=== PATIENT | female | born 1995 | race Caucasian/White ===

== ENCOUNTER 2016-10-10 20:37 | Emergency (ER) | payer OTHER ==
[~2016-10-10] VITALS: Ht 154.9 cm; Wt 45.8 kg
[2016-10-10 21:09] VITALS: BP 115/66
[2016-10-10] MEDS ORDERED: MECLIZINE 25 MG TAB PO ONE (21:20)
[2016-10-10] MEDS ORDERED: ONDANSETRON 4 MG ODT PO ONE (21:20)
--- NOTE | 2016-10-10 21:22 | NUR ---
PT.AMBULATE TO BED 8
--- NOTE | 2016-10-10 21:22 | NUR ---
20Y/F PATIENT PRESENTS TO ED WITH C/O N/V X 2 WKS. PT STATES HAVING ON ATB FOR UTI, BEEN FEELING N/V X 2 WK, C/O ABDOMINAL PAIN. DENIES DIARRHEA; SKIN IS PINK/WARM/DRY; AAOX4 WITH EVEN AND STEADY GAIT; LUNGS CLEAR BL; HR EVEN AND REGULAR; PT DENIES ANY FEVER, CP, SOB, OR COUGH AT THIS TIME; PATIENT STATES PAIN OF 7/10 AT THIS TIME; VSS; PATIENT POSITIONED FOR COMFORT; HOB ELEVATED; BEDRAILS UP X2; BED DOWN. ER MD MADE AWARE OF PT STATUS.
[2016-10-10] MEDS ORDERED: NACL 0.9% 1,000 ML IV ONE (22:00)
[2016-10-10 23:00] VITALS: BP 111/67
--- NOTE | 2016-10-10 23:00 | NUR ---
Patient discharged with v/s stable. Written and verbal after care instructions given and explained. Patient verbalized understanding. Ambulatory with steady gait. All questions addressed prior to discharge. Advised to follow up with PMD.
== END 2016-10-10 23:00 | disposition home or self-care (01) ==
LOC: MED 20:37
DX: R55 Syncope and collapse (principal); R11.0 Nausea
CPT/HCPCS: 36415; 71020; 80048; 81001; 81025; 84702; 85025; 87086; 93005; 96360; 99285; J8597; S0119

== ENCOUNTER 2016-11-20 04:26 | Emergency (ER) | payer SELFPAY ==
[~2016-11-20] VITALS: Ht 154.9 cm; Wt 44.0 kg
--- NOTE | 2016-11-20 04:32 | NUR ---
Dr. Naranjo evaluating patient
[2016-11-20 04:38] VITALS: BP 118/81
--- NOTE | 2016-11-20 04:43 | NUR ---
PT TAKEN TO CT
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
--- NOTE | 2016-11-20 04:46 | NUR ---
SPOKE TO GEOVANNA RODRIGUEZ; WILL SEND DISPATCH OUT
--- NOTE | 2016-11-20 04:52 | NUR ---
PT RETURN FROM CT TO BED 4
--- NOTE | 2016-11-20 05:09 | NUR ---
X-Ray at bedside.
[2016-11-20 06:34] VITALS: BP 112/76
--- NOTE | 2016-11-20 06:34 | NUR ---
Patient discharged BY DR RODRIGUES with v/s stable. Written and verbal after care instructions given and explained BY ER MD. Patient alert, oriented and verbalized understanding of instructions. Ambulatory with steady gait. All questions addressed prior to discharge. ID band removed. Patient advised to follow up with PMD TOMORROW OR RETURN TO ER IF CONDITION WORSENS. Rx of NAPROSYN given. Patient educated on indication of medication including possible reaction and side effects. Opportunity to ask questions provided and answered.
== END 2016-11-20 06:34 | disposition home or self-care (01) ==
LOC: MED 04:26
DX: S09.90XA Unspecified injury of head, initial encounter (principal); M25.531 Pain in right wrist; M79.631 Pain in right forearm; Y08.09XA Assault by strike by other specified type of sport equipment, initial encounter; Y93.89 Activity, other specified; Y92.89 Other specified places as the place of occurrence of the external cause; Y99.8 Other external cause status
CPT/HCPCS: 70450; 73090; 73130; 99284; Q0092

== ENCOUNTER 2017-09-01 22:28 | Emergency (ER) | payer MEDICAID, OTHER ==
[~2017-09-01] VITALS: Ht 154.9 cm; Wt 49.0 kg
[2017-09-01 22:32] VITALS: BP 110/72
--- NOTE | 2017-09-01 22:37 | NUR ---
PT AMB TO ER BED 4
--- NOTE | 2017-09-01 22:40 | NUR ---
PATIENT IS A 21 Y/O FEMALE WHO PRESENTS TO THE ED C/O ABD PAIN. PT STATES, "I HAVE HAD THIS ABD CRAMPING FOR ABOUT 1 WEEK NOW." PT REPORTS 8/10 CRAMPING ABD PAIN THAT DOES NOT RADIATE. PT REPORTS YELLOWISH WHITE VAGINAL DISHARGE. PT DENIES, CP, SOB REPORTS NAUSEA DENIES VOMITING/DIARRHEA. PT AAOX4, RR EVEN/UNLABORED. PT REPOSITIONED FOR COMFORT, BED IN LOWEST POSITION. ER MD DR. BANUELOS NOTIFIED. WILL CONTINUE TO MONITOR. HX---UTI RX---ADVIL
[2017-09-01 23:14] LABS: HEMOGLOBIN 13.4 g/dL (12.0-16.0); MEAN CORPUSCULAR HEMOGLOBIN 28 pg (27-31); MEAN CORPUSCULAR HGB CONC 31 g/dL (33-37); MEAN CORPUSCULAR VOLUME 91 fL (80-94); PLATELET COUNT (AUTO) 219 K/uL (140-450); RED BLOOD CELL COUNT(AUTO) 4.72 MIL/uL (4.20-5.40); RED CELL DISTRIBUTION WIDTH 12.3 % (11.6-13.7); WHITE BLOOD COUNT (AUTO) 8.8 K/uL (4.8-10.8)
[2017-09-01 23:23] LABS: APPEARANCE,URINE CLEAR (CLEAR); BILIRUBIN,URINE NEGATIVE (NEGATIVE); BLOOD, URINE NEGATIVE (NEGATIVE); COLOR,URINE YELLOW (YELLOW); LEUKOCYTE ESTERASE ,URINE NEGATIVE (NEGATIVE); NITRITE, URINE NEGATIVE (NEGATIVE); PH,URINE 5.5 (5.0-9.0); UGLUCOSE NEGATIVE (NEGATIVE)
[2017-09-01 23:24] LABS: ANION GAP 9.8 (8-16); CARBON DIOXIDE 27.3 mmol/L (21-32); CREATININE 0.7 mg/dL (0.6-1.3); POTASSIUM 4.1 mmol/L (3.5-5.1)
[2017-09-01 23:29] LABS: ALBUMIN 3.8 g/dL (3.4-5.0); TOTAL BILIRUBIN 0.3 mg/dL (0.0-1.0)
--- NOTE | 2017-09-02 00:01 | NUR ---
PT MOVED TO ER BED 10 FOR ER MD CARRANZA
--- NOTE | 2017-09-02 00:47 | NUR ---
Pelvic exam performed by SECHRIST with AIDA SERRANO at bedside for entire examination. Patient tolerated procedure WELL. Patient assisted to position of comfort after examination.
--- NOTE | 2017-09-02 00:53 | NUR ---
2 SWAB FROM PELVIC EXAM SENT TO LAB
--- NOTE | 2017-09-02 01:40 | NUR ---
US AT BEDSIDE.
--- NOTE | 2017-09-02 02:18 | NUR ---
Patient appears to be resting comfortably in bed. Vital Signs within normal limits. Respirations even and unlabored.
--- NOTE | 2017-09-02 04:08 | NUR ---
PATIENT TAKEN TO US WITH US TECH.
--- NOTE | 2017-09-02 04:31 | NUR ---
PATIENT RETURN FROM US.
[2017-09-02] MEDS ORDERED: FLUCONAZOLE 100 MG TAB PO ONE (05:15)
[2017-09-02] MEDS ORDERED: FLUCONAZOLE 100 MG TAB ONE (05:43)
[2017-09-02 06:02] VITALS: BP 116/65
--- NOTE | 2017-09-02 06:02 | NUR ---
Patient discharged with v/s stable. Written and verbal after care instructions given and explained. Patient alert, oriented and verbalized understanding of instructions. Ambulatory with steady gait. All questions addressed prior to discharge. ID band removed. Patient advised to follow up with PMD. Rx of DIFLUCAN 150MG given. Patient educated on indication of medication including possible reaction and side effects. Opportunity to ask questions provided and answered.
[2017-09-06 06:16] LABS: CHLAMYDIA TRACHOMATIS AMP DNA Negative (Negative)
== END 2017-09-02 06:02 | disposition home or self-care (01) ==
LOC: MED 22:28
DX: B37.3 Candidiasis of vulva and vagina (principal)
CPT/HCPCS: 36415; 76830; 76856; 80053; 81003; 81025; 83690; 85025; 87210; 87491; 99285; Q0092

== ENCOUNTER 2018-02-19 18:48 | Emergency (ER) | payer OTHER ==
[~2018-02-19] VITALS: Ht 154.9 cm; Wt 46.3 kg
[2018-02-19 18:52] VITALS: BP 109/66
--- NOTE | 2018-02-19 18:56 | NUR ---
pt ambulates to bed 2 at this time w/ steady gait
--- NOTE | 2018-02-19 18:59 | NUR ---
22 yo f bib self w/ c/o bl lower abdomen cramping with white/clear vaginal discharge with fevers, dysuria, and vaginal itchness x yesterday. Patient denies any n/v/d. pt aaox4. gcs 15. cms intact. rr even and unlabored. lungs bilaterally clear. abd soft, non-tender. bowel sounds active x 4 quadrants. er md notified. pt needs met, safety precautions in place, will continue to monitor.
--- NOTE | 2018-02-19 19:11 | NUR ---
Transfer of care at this time, report given to AIDA Juarez.
--- NOTE | 2018-02-19 19:25 | NUR ---
PT MOVED TO BED 12
--- NOTE | 2018-02-19 20:00 | NUR ---
Dr. Verma evaluating patient at bedside.
--- NOTE | 2018-02-19 20:10 | NUR ---
PT MOVED TO BED 2
[2018-02-19 21:09] VITALS: BP 120/63
--- NOTE | 2018-02-19 21:10 | NUR ---
Patient discharged with v/s stable. Written and verbal after care instructions given and explained. Patient alert, oriented and verbalized understanding of instructions. Ambulatory with steady gait. All questions addressed prior to discharge. ID band removed. Patient advised to follow up with PMD. Rx of DIFLUCAN 150 MG given. Patient educated on indication of medication including possible reaction and side effects. Opportunity to ask questions provided and answered.
== END 2018-02-19 21:10 | disposition home or self-care (01) ==
LOC: MED 18:48
DX: B37.3 Candidiasis of vulva and vagina (principal)
CPT/HCPCS: 81002; 81025; 87070; 87205; 87210; 99284

== ENCOUNTER 2018-10-24 15:55 | Emergency (ER) | payer OTHER ==
[~2018-10-24] VITALS: Ht 154.9 cm; Wt 46.7 kg
[2018-10-24 16:25] VITALS: BP 108/59
--- NOTE | 2018-10-24 17:22 | NUR ---
PT AMBULATED TO ER BED 04
--- NOTE | 2018-10-24 17:27 | NUR ---
PT BIB SELF FOR BURNING RASH X4 DAYS. PT REPORTS FIRST NOTICING RASH AROUND VAGINA ON TUESDAY. PT REPORTS BURNING RASH THAT IS TENDER TO TOUCH AT 8/10. PT REPORTS THICK WHITE DISCHARGE WITH MILD ODOR. PT DENIES BURNING URINATION, FREQUENCY, OR HESITANCY. PT STATES THAT SHE HAS ONE SEX PARTNER, AND PARTNER ALSO HAS RASH AROUND GENETALIA. VSS. OG SIMMONS TO SEE PT.
--- NOTE | 2018-10-24 18:17 | NUR ---
Female Patient Care AIDA SERRANO accompanied ER MD DR RIVERA FOR female patient Pelvic Exam. PT NAIN WELL
--- NOTE | 2018-10-24 18:28 | NUR ---
Patient discharged with v/s stable. Written and verbal after care instructions given and explained. Patient alert, oriented and verbalized understanding of instructions. Ambulatory with steady gait. All questions addressed prior to discharge. ID band removed. Patient advised to follow up with PMD. Rx of DIFLUCAN given. Patient educated on indication of medication including possible reaction and side effects. Opportunity to ask questions provided and answered.
[2018-10-24 18:29] VITALS: BP 114/67
[2018-10-26 06:18] LABS: CHLAMYDIA TRACHOMATIS AMP DNA Negative (Negative)
== END 2018-10-24 18:28 | disposition home or self-care (01) ==
LOC: MED 15:55
DX: B37.3 Candidiasis of vulva and vagina (principal)
CPT/HCPCS: 36415; 81002; 81025; 87491; 99283

== ENCOUNTER 2018-11-27 02:55 | Emergency (ER) | payer OTHER ==
[~2018-11-27] VITALS: Ht 154.9 cm; Wt 47.2 kg
--- NOTE | 2018-11-27 03:00 | NUR ---
PT TAKEN TO BED 9
[2018-11-27 03:05] VITALS: BP 112/62
--- NOTE | 2018-11-27 03:17 | NUR ---
PT MOVED TO BED 12
--- NOTE | 2018-11-27 03:17 | NUR ---
PT PRESENTS TO ED WITH BURNING/ITCHING TO VAGINA AFTER URINATION AND NON-RADIATING LLQ SUPRAPUBIC PAIN X3 DAYS. TAKING DIFLUCAN GIVEN BY MD AT URGENT CARE X3 DAYS AGO. AFEBRILE. VSS. POSITIONED IN BED FOR COMFORT. ER MD AWARE. CONTINUE TO MONITOR.
--- NOTE | 2018-11-27 03:24 | NUR ---
Dr. Verma evaluating patient at bedside.
--- NOTE | 2018-11-27 03:50 | NUR ---
Female tour coordinator for pelvic exam, pt tolerated well, comfort measures provided.
--- NOTE | 2018-11-27 04:02 | NUR ---
SPECIMENS SENT TO LAB.
[2018-11-27 04:32] VITALS: BP 126/71
--- NOTE | 2018-11-27 04:34 | NUR ---
DISCHARGE INSTRUCTIONS GIVEN. 2/10 PAIN AND TOLLERABLE. VSS. RX FOR FLAGYL AND ZOFRAN GIVEN. SIDE EFFECTS EXPLAINED. INSTRUCTED TO F/U WITH PCP AND WHEN TO RETURN TO ER. PT VERBALIZED UNDERSTANDING OF DC INSTRUCTIONS. ALL QUESTIONS ANSWERED.
== END 2018-11-27 04:34 | disposition home or self-care (01) ==
LOC: MED 02:55
DX: N76.0 Acute vaginitis (principal); B96.89 Other specified bacterial agents as the cause of diseases classified elsewhere; R11.0 Nausea
CPT/HCPCS: 81002; 81025; 87070; 87205; 87210; 99283

== ENCOUNTER 2019-01-07 10:18 | Emergency (ER) | payer OTHER ==
[~2019-01-07] VITALS: Ht 154.9 cm; Wt 46.4 kg
[2019-01-07 10:23] VITALS: BP 114/69
--- NOTE | 2019-01-07 10:29 | NUR ---
SHRAVAN AMBULATED TO BED 5.
--- NOTE | 2019-01-07 10:40 | NUR ---
PATIENT PRESENTS TO ED WITH C/O VAGINAL PAIN & WHITE DISCHARGE. PT REPORTS DULL PAIN AT 4/10. +FEVER APPROX 4 DAYS AGO. +NAUSEA, NO VOMITING EPISODES. VSS; PATIENT POSITIONED FOR COMFORT; HOB ELEVATED; BEDRAILS UP X1; BED DOWN.
[2019-01-07 11:10] LABS: APPEARANCE,URINE CLEAR (CLEAR); BILIRUBIN,URINE NEGATIVE (NEGATIVE); BLOOD, URINE NEGATIVE (NEGATIVE); COLOR,URINE YELLOW (YELLOW); LEUKOCYTE ESTERASE ,URINE NEGATIVE (NEGATIVE); NITRITE, URINE NEGATIVE (NEGATIVE); UGLUCOSE NEGATIVE (NEGATIVE)
--- NOTE | 2019-01-07 11:35 | NUR ---
Female Director Trading, graham javier, accompanied female patient for Pelvic Exam performed by dr cunningham.
--- NOTE | 2019-01-07 11:45 | NUR ---
vaginal swabs collected and taken to lab
[2019-01-07 12:05] VITALS: BP 105/62
--- NOTE | 2019-01-07 12:06 | NUR ---
Patient discharged with v/s stable. Written and verbal after care instructions given and explained. Patient alert, oriented and verbalized understanding of instructions. Ambulatory with steady gait. All questions addressed prior to discharge. ID band removed. Patient advised to follow up with PMD. Rx of Flagyl given. Patient educated on indication of medication including possible reaction and side effects. Opportunity to ask questions provided and answered.
== END 2019-01-07 12:06 | disposition home or self-care (01) ==
LOC: MED 10:18
DX: N76.0 Acute vaginitis (principal); B96.89 Other specified bacterial agents as the cause of diseases classified elsewhere
CPT/HCPCS: 81003; 81025; 87210; 99283

== ENCOUNTER 2019-06-21 21:34 | Emergency (ER) | payer OTHER ==
[~2019-06-21] VITALS: Ht 154.9 cm; Wt 47.6 kg
[2019-06-21 21:40] VITALS: BP 125/77
--- NOTE | 2019-06-21 21:43 | NUR ---
TO LOBBY A/W BED AMBULATORY
--- NOTE | 2019-06-21 21:55 | NUR ---
PT AMBULATED TO ER BED 06
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
[2019-06-21] MEDS ORDERED: ONDANSETRON 4 MG/2 ML VIAL IVP ONE (22:20)
[2019-06-21] MEDS ORDERED: NACL 0.9% 1,000 ML IV ONE (22:20)
[2019-06-21 22:52] LABS: APPEARANCE,URINE SL CLOUDY (CLEAR); BILIRUBIN,URINE NEGATIVE (NEGATIVE); BLOOD, URINE NEGATIVE (NEGATIVE); COLOR,URINE YELLOW (YELLOW); LEUKOCYTE ESTERASE ,URINE 2+ (NEGATIVE); NITRITE, URINE NEGATIVE (NEGATIVE); UGLUCOSE NEGATIVE (NEGATIVE)
[2019-06-21 22:58] LABS: BASOPHILS % (AUTO) 0.8 % (0.0-2.0); EOSINOPHILS % (AUTO) 0.6 % (0.0-4.0); HEMATOCRIT 44.1 % (36-48); HEMOGLOBIN 14.9 g/dL (12.0-16.0); LYMPHOCYTES # (AUTO) 1.7 K/uL (2.5-16.5); LYMPHOCYTES % (AUTO) 29.4 % (20.5-51.1); MEAN CORPUSCULAR HEMOGLOBIN 31 pg (27-31); MEAN CORPUSCULAR HGB CONC 34 g/dL (33-37); MEAN CORPUSCULAR VOLUME 89.9 fL (80-94); MONOCYTES # (AUTO) 0.4 K/uL (0.8-1.0); MONOCYTES % (AUTO) 7.9 % (1.7-9.3); NEUTROPHILS # (AUTO) 3.5 K/uL (1.8-7.7); NEUTROPHILS % (AUTO) 61.3 % (42.2-75.2); PLATELET COUNT (AUTO) 187 K/uL (140-450); RED BLOOD CELL COUNT(AUTO) 4.91 MIL/uL (4.20-5.40); RED CELL DISTRIBUTION WIDTH 13.1 % (11.6-13.7); WHITE BLOOD COUNT (AUTO) 5.7 K/uL (4.8-10.8)
[2019-06-21 23:24] LABS: ALBUMIN 3.4 g/dL (3.4-5.0); ANION GAP 13.2 (8-16); CARBON DIOXIDE 26.1 mmol/L (21-32); CREATININE 0.8 mg/dL (0.6-1.3); POTASSIUM 3.3 mmol/L (3.5-5.1); TOTAL BILIRUBIN 0.3 mg/dL (0.0-1.0)
[2019-06-21 23:24] LABS: RBC,URINE 0-5 /HPF (0-5)
[2019-06-21] MEDS ORDERED: cefTRIAXone 1,000 MG VIAL ONE (23:55)
--- NOTE | 2019-06-22 00:02 | NUR ---
PT AWAKE. PT REPORTS DECREASED PAIN LEVEL. VSS. WILL CONTINUE TO MONITOR.
[2019-06-22 00:38] VITALS: BP 112/58
--- NOTE | 2019-06-22 00:38 | NUR ---
Patient discharged with v/s stable. Written and verbal after care instructions given and explained. Patient alert, oriented and verbalized understanding of instructions. Ambulatory with steady gait. All questions addressed prior to discharge. ID band removed. Patient advised to follow up with PMD. Rx of ZOFRAN, BACTRIM given. Patient educated on indication of medication including possible reaction and side effects. Opportunity to ask questions provided and answered.
== END 2019-06-22 00:39 | disposition home or self-care (01) ==
LOC: MED 21:34
DX: N39.0 Urinary tract infection, site not specified (principal); R11.2 Nausea with vomiting, unspecified; R19.7 Diarrhea, unspecified
CPT/HCPCS: 36415; 80053; 81001; 81025; 83690; 85025; 87086; 96361; 96365; 96375; 99283; J0696; J2405; J7030

== ENCOUNTER 2020-01-20 20:50 | Emergency (ER) | payer OTHER ==
[~2020-01-20] VITALS: Ht 154.9 cm; Wt 52.6 kg
[2020-01-20 21:12] VITALS: BP 116/73
--- NOTE | 2020-01-20 21:24 | NUR ---
PT TAKEN TO BED 12
--- NOTE | 2020-01-20 21:40 | NUR ---
24F PRESENTS TO ED WITH C/O VAGINAL DISCHARGE. PT STATES HAVING NO ABDOMINAL PAIN. PT NEGATIVE FOR DURING URINE SCREEN. REPORTS FOUL ODOR WITH VAGINAL DISCHARGE OR BLOOD URINE. DENIES SOB/COUGH, DENIES FEVER, LOC. DENIES N/V/D. PT NEGATIVE FOR COVID SCREENING. WEARING A MASK.
[2020-01-20 21:57] VITALS: BP 116/73
--- NOTE | 2020-01-20 22:27 | NUR ---
Patient discharged with v/s stable. Written and verbal after care instructions given and explained. Patient alert, oriented and verbalized understanding of instructions. Ambulatory with steady gait. All questions addressed prior to discharge. ID band removed. Patient advised to follow up with PMD. Rx of FLAGYL given. Patient educated on indication of medication including possible reaction and side effects. Opportunity to ask questions provided and answered.
== END 2020-01-20 22:27 | disposition home or self-care (01) ==
LOC: MED 20:50
DX: N76.0 Acute vaginitis (principal); Z98.890 Other specified postprocedural states; Z88.8 Allergy status to other drugs, medicaments and biological substances
CPT/HCPCS: 81002; 81025; 99282

== ENCOUNTER 2020-04-16 23:30 | Emergency (ER) | payer OTHER ==
[~2020-04-16] VITALS: Ht 152.4 cm; Wt 50.3 kg
[2020-04-16 23:35] VITALS: BP 132/68
--- NOTE | 2020-04-16 23:40 | NUR ---
to bed 06 with steady gait
[2020-04-17] MEDS ORDERED: FLUCONAZOLE 100 MG TAB PO ONE
--- NOTE | 2020-04-17 00:01 | NUR ---
PT C/O VAGINAL DISCHARGE X 3 WEEKS AND TODAY SHE NOTICED A FOUL ODOR. PT STATES DISCHARGE IS THIN AND WHITE. ALSO HAVING IRRITATION AND ITCHING. PT HAS A HX OF MULTIPLE DX OF BACTERIAL VAGINITIS. HAS NOT FOLLOWED UP WITH WHEELCHAIR VAN OPERATOR FIRST RESPONDER SINCE LAST VISIT HERE IN ER FOR SAME ISSUE BACK IN JANUARY. AFEBRILE NO N/V/D. BED IN LOWEST POSITION AND SIDERAIL UP X 1 ALLERGY - DIFLUCAN NO HX
[2020-04-17] MEDS ORDERED: metroNIDAZOLE 250 MG TAB PO ONE (00:05)
[2020-04-17 00:28] LABS: APPEARANCE,URINE CLEAR (CLEAR); BILIRUBIN,URINE NEGATIVE (NEGATIVE); BLOOD, URINE NEGATIVE (NEGATIVE); COLOR,URINE DARK YELLOW (YELLOW); LEUKOCYTE ESTERASE ,URINE NEGATIVE (NEGATIVE); NITRITE, URINE NEGATIVE (NEGATIVE); PH,URINE 6.5 (5.0-9.0); UGLUCOSE NEGATIVE (NEGATIVE)
[2020-04-17 01:03] VITALS: BP 121/67
--- NOTE | 2020-04-17 01:04 | NUR ---
Patient discharged with v/s stable. Written and verbal after care instructions given and explained. Patient alert, oriented and verbalized understanding of instructions. Ambulatory with steady gait. All questions addressed prior to discharge. ID band removed. Patient advised to follow up with PMD. Rx of DIFLUCAN AND FLAGYL given. Patient educated on indication of medication including possible reaction and side effects. Opportunity to ask questions provided and answered.
== END 2020-04-17 01:03 | disposition home or self-care (01) ==
LOC: MED 23:30
DX: R30.0 Dysuria (principal); N76.0 Acute vaginitis
CPT/HCPCS: 81003; 81025; 99283

== ENCOUNTER 2020-09-05 08:48 | Emergency (ER) | payer OTHER ==
[~2020-09-05] VITALS: Ht 154.9 cm; Wt 47.6 kg
[2020-09-05 08:53] VITALS: BP 118/66
--- NOTE | 2020-09-05 09:00 | NUR ---
PT TAKEN TO BED 9.
--- NOTE | 2020-09-05 09:04 | NUR ---
FROM HOME C/O MID BACK PAIN 03/17 WITH INTERMITTANT ABDOMINAL CRAMPING WELL. DENIES DYSURIA, N/V, MENSTRUAL CYCLE NORMAL NO Hx, NKA
[2020-09-05] MEDS ORDERED: KETOROLAC 60 MG/2 ML VIAL IM ONE (09:05)
[2020-09-05 09:44] VITALS: BP 115/65
--- NOTE | 2020-09-05 09:45 | NUR ---
cleared for d/c by DR Verma; d/c with prescription & instructions on [facility]; pt fully understands all materials given re c/c; has no further questions; aox4; VSS; ambulatory with steady gait; no signs of acute distress
== END 2020-09-05 09:45 | disposition home or self-care (01) ==
LOC: MED 08:48
DX: R10.9 Unspecified abdominal pain (principal); M54.9 Dorsalgia, unspecified; Z88.8 Allergy status to other drugs, medicaments and biological substances
CPT/HCPCS: 81002; 81025; 96372; 99283; J1885

== ENCOUNTER 2021-02-17 01:32 | Emergency (ER) | payer OTHER ==
[~2021-02-17] VITALS: Ht 154.9 cm; Wt 49.9 kg
[2021-02-17 01:35] VITALS: BP 116/71
--- NOTE | 2021-02-17 01:38 | NUR ---
TO LOBBY A/W BED AMBULATORY
--- NOTE | 2021-02-17 02:30 | NUR ---
PT AMBULATED TO BED 8
[2021-02-17] MEDS ORDERED: AZITHROMYCIN 250 MG TAB PO ONE (03:05)
[2021-02-17] MEDS ORDERED: cefTRIAXone 250 MG in LIDOCAINE MPF 1% 0.9 ML IM ONE (03:05)
[2021-02-17] MEDS ORDERED: LIDOCAINE MPF 1% 5 ML ONE (03:54)
[2021-02-17] MEDS ORDERED: cefTRIAXone 250 MG VIAL ONE (03:54)
--- NOTE | 2021-02-17 04:03 | NUR ---
Patient laying in bed eyes closed, locked in lowest position, HOB slightly elevated, x1 siderail up. Breathing even and unlabored. NAD noted, will continue to monitor.
[2021-02-17 04:59] LABS: APPEARANCE,URINE CLOUDY (CLEAR); BILIRUBIN,URINE NEGATIVE (NEGATIVE); BLOOD, URINE NEGATIVE (NEGATIVE); COLOR,URINE YELLOW (YELLOW); LEUKOCYTE ESTERASE ,URINE NEGATIVE (NEGATIVE); NITRITE, URINE NEGATIVE (NEGATIVE); PH,URINE 7.5 (5.0-9.0); UGLUCOSE NEGATIVE (NEGATIVE)
[2021-02-17] MEDS ORDERED: IBUPROFEN 600 MG TAB PO ONE (05:35)
[2021-02-17 06:01] VITALS: BP 117/77
== END 2021-02-17 06:01 | disposition home or self-care (01) ==
LOC: MED 01:32
DX: A64 Unspecified sexually transmitted disease (principal); Z88.8 Allergy status to other drugs, medicaments and biological substances
CPT/HCPCS: 36415; 76856; 81003; 81025; 87491; 96372; 99284; J0696; J2001

== ENCOUNTER 2022-05-02 16:25 | Emergency (ER) | payer OTHER ==
[~2022-05-02] VITALS: Ht 154.9 cm; Wt 52.2 kg
[2022-05-02 16:32] VITALS: BP 115/63
[2022-05-02] MEDS ORDERED: ACETAMINOPHEN EXTRA STRENGTH 500 MG TAB PO ONE (16:40)
--- NOTE | 2022-05-02 16:42 | NUR ---
VERBAL ORDER GIVEN BY DR. ALLEN TO MEDICATE FOR FEVER WITH 1000MG TYLENOL
[2022-05-02] MEDS ORDERED: FLUCONAZOLE 100 MG TAB PO ONE (22:55)
[2022-05-02 23:09] LABS: APPEARANCE,URINE CLEAR (CLEAR); BILIRUBIN,URINE NEGATIVE (NEGATIVE); BLOOD, URINE NEGATIVE (NEGATIVE); COLOR,URINE YELLOW (YELLOW); LEUKOCYTE ESTERASE ,URINE NEGATIVE (NEGATIVE); NITRITE, URINE NEGATIVE (NEGATIVE); UGLUCOSE NEGATIVE (NEGATIVE)
[2022-05-02] MEDS ORDERED: IBUPROFEN 400 MG TAB ONE (23:34)
[2022-05-02] MEDS ORDERED: IBUPROFEN 400 MG TAB PO ONE (23:35)
[2022-05-02] MEDS ORDERED: CEPH-588 PO (23:46)
[2022-05-02] MEDS ORDERED: FLUC150T PO (23:46)
[2022-05-03 00:02] VITALS: BP 112/74
--- NOTE | 2022-05-03 00:02 | NUR ---
Patient discharged with v/s stable. Written and verbal after care instructions given and explained. Patient alert, oriented and verbalized understanding of instructions. Ambulatory with steady gait. All questions addressed prior to discharge. ID band removed. Patient advised to follow up with PMD. Rx of KEFLEX, DIFLUCAN given. Patient educated on indication of medication including possible reaction and side effects. Opportunity to ask questions provided and answered.
== END 2022-05-03 00:02 | disposition home or self-care (01) ==
LOC: MED 16:25
DX: B37.49 Other urogenital candidiasis (principal); Z79.899 Other long term (current) drug therapy; Z79.2 Long term (current) use of antibiotics
CPT/HCPCS: 81003; 81025; 99284

== ENCOUNTER 2023-04-23 13:44 | Emergency (ER) | payer SELFPAY ==
[~2023-04-23] VITALS: Ht 154.9 cm; Wt 57.6 kg
[~2023-04-23 13:44] MED LIST: CEPH-588 PO; FLUC150T PO
[2023-04-23 14:13] VITALS: BP 124/63; PULSE 67; RESP 16; TEMP 97.4; O2SAT 98
[2023-04-23] MEDS ORDERED: AMOX500C25 PO (14:45)
[2023-04-23] MEDS ORDERED: IBUP-2213 PO (14:45)
[2023-04-23 14:54] VITALS: BP 122/60; PULSE 64; RESP 16; TEMP 97.4; O2SAT 98
== END 2023-04-23 14:54 | disposition home or self-care (01) ==
LOC: MED 13:44
DX: M26.622 Arthralgia of left temporomandibular joint (principal); K05.20 Aggressive periodontitis, unspecified; Z79.899 Other long term (current) drug therapy; Z79.1 Long term (current) use of non-steroidal anti-inflammatories (NSAID); Z79.2 Long term (current) use of antibiotics; Z88.8 Allergy status to other drugs, medicaments and biological substances
CPT/HCPCS: 99283